=== PATIENT | male | born 1965 | race Caucasian/White ===

== ENCOUNTER 2017-05-21 07:00 | Inpatient (IN) ==
[~2017-05-21 07:00] MED LIST: ASPIRIN EC 325 MG TABLET PO SCH; CHLORHEXIDINE 0.12% ORAL RINSE 60 ML BOTTLE SWISH/SPIT SCH; DEXTROSE 50% 25 GM/50 ML VIAL IV PRN; GLUCAGON 1 MG VIAL IM PRN; LISINOPRIL/HCTZ 10-12.5 MG TABLET PO SCH; ROSUVASTATIN 10 MG TABLET PO SCH; SODIUM CHLORIDE 0.9% 1,000 ML IV SCH; ZOLPIDEM 5 MG TABLET PO PRN; oxyCODONE/ACETAMINOPHEN 5-325 MG TABLET PO PRN
[2017-05-21 14:19] LABS: Basophils % 0.3 % (0.0-0.8); Eosinophils # 0.1 10*3/uL (0.0-0.87); Eosinophils % 1.6 % (0.00-10.9); Hematocrit 44.1 VOL% (42.0-52.0); Hemoglobin 15.6 GM/DL (14.0-18.0); Immature Granulocytes % 0.3 %; Immature Granulocytes Absolute 0.02 #; Lymphocytes # 1.4 10*3/uL (1.4-4.0); Lymphocytes % 22.9 % (21.2-54.2); Mean Corpuscular HGB Conc 35.4 GM/DL (32-36); Mean Corpuscular Hemoglobin 31 PG (27-34); Mean Corpuscular Volume 88.4 FL (87-102); Mean Platelet Volume 10.2 FL (9.6-12.0); Monocytes # 0.5 10*3/uL (0.11-0.8); Monocytes % 8.4 % (1.7-12.7); Neutrophils # 4.1 10*3/uL (1.4-7.4); Neutrophils % 66.5 % (38.7-73.9); Platelet Count 193 T/CUMM (130-400); Red Blood Count 4.99 MC/CUMM (3.8-5.5); White Blood Count 6.2 T/CUMM (4-12)
[2017-05-21 14:47] LABS: Albumin 4.4 G/DL (3.4-5.0); Bilirubin,Total 0.4 MG/DL (0.2-1.0); Calcium 9.3 MG/DL (8.5-10.1); Osmolality,Calculated 279.4 MOS/KG (273-304); Potassium 3.7 MMOL/L (3.5-5.1); Total Protein 7.5 G/DL (6.4-8.3)
[2017-05-21] MEDS ORDERED: CHLORHEXIDINE 4% SOLN 118 ML BOTTLE TOP SCH (15:00)
[2017-05-21] MEDS ORDERED: SODIUM CHLORIDE 0.9% 1,000 ML IV SCH (15:00)
[2017-05-21] MEDS ORDERED: DEXTROSE 50% 25 GM/50 ML VIAL IV PRN (15:00)
[2017-05-21] MEDS ORDERED: GLUCAGON 1 MG VIAL IM PRN (15:00)
[2017-05-21] MEDS ORDERED: oxyCODONE/ACETAMINOPHEN 5-325 MG TABLET PO PRN (15:00)
[2017-05-21] MEDS ORDERED: ZOLPIDEM 5 MG TABLET PO PRN (15:00)
[2017-05-21] MEDS: CHLORHEXIDINE 4% SOLN 118 ML BOTTLE TOP SCH ×2 (15:00→22:02)
[2017-05-21] MEDS ORDERED: ROSUVASTATIN 10 MG TABLET PO SCH (21:00)
[2017-05-21] MEDS: CHLORHEXIDINE 0.12% ORAL RINSE 60 ML BOTTLE SWISH/SPIT SCH (22:03)
[2017-05-22] MEDS ORDERED: FAMOTIDINE 20 MG TABLET PO ONE (05:00)
[2017-05-22] MEDS ORDERED: LORazepam 1 MG TABLET PO ONE (05:00)
[2017-05-22] MEDS ORDERED: VANCOMYCIN 1,000 MG VIAL ONE ×2 (05:22→08:22)
[2017-05-22] MEDS ORDERED: PAPAVERINE 60 MG/2 ML VIAL ONE (05:22)
[2017-05-22] MEDS ORDERED: CEFUROXIME INJ 1,500 MG in SODIUM CHLORIDE 0.9% 50 ML IV ONE (06:30)
[2017-05-22] MEDS ORDERED: CALCIUM CHLORIDE 1,000 MG/10 ML SYRINGE IV ONE (07:28)
[2017-05-22] MEDS ORDERED: NITROPRUSSIDE 50 MG/2 ML VIAL ONE (07:28)
[2017-05-22] MEDS ORDERED: PHENYLEPHRINE DRIP 40 MG/250 ML PREMIX IV ONE (07:28)
[2017-05-22] MEDS ORDERED: POTASSIUM CHLORIDE RIDER 100 ML IV ONE (07:29)
[2017-05-22] MEDS ORDERED: ALBUMIN 5% 12.5 GM/250 ML VIAL IV ONE (07:29)
[2017-05-22 07:41] LABS: ABG Base Excess 1.1 MMOL/L (-2.5-2.5); ABG HCO3 25.4 MMOL/L (20-26); ABG PCO2 34.3 MM HG (35-48); Glucose Heart Surgery 124 MG/DL (74-106); Hemoglobin Heart Surgery 13.7 G/DL (14.0-18.0); Ionized Calcium Arterial 1.14 MMOL/L (1.21-1.46); PCO2 Patient Temp Arterial 34.3 MMHG; Patient Temperature 37 CELCIUS; Sodium Heart/CVR 138 MMOL/L (135-145)
[2017-05-22 07:45] LABS: Apearance,Urine CLEAR (Clear); Bilirubin,Urine Negative (Negative); Blood, Urine Negative (Negative); Glucose,Urine (UA) Negative (Negative); Ketones,Urine Negative (Negative); Nitrite,Urine Negative (Negative); Protein,Urine Negative; RBC,Urine 1 /HPF (0-4); Urine Color Yellow (Yellow); Urine Specific Gravity 1.014 (1.001-1.035); Urine Urobilinogen < 2.0 EU/DL (0.2-1.0)
[2017-05-22 07:46] LABS: Mucus,Urine Occasional /LPF (Occasional)
[2017-05-22] MEDS: CHLORHEXIDINE 4% SOLN 118 ML BOTTLE TOP SCH (08:58)
[2017-05-22] MEDS: CHLORHEXIDINE 0.12% ORAL RINSE 60 ML BOTTLE SWISH/SPIT SCH (08:58)
[2017-05-22] MEDS ORDERED: ASPIRIN EC 325 MG TABLET PO SCH (09:00)
[2017-05-22] MEDS ORDERED: LISINOPRIL/HCTZ 10-12.5 MG TABLET PO SCH (09:00)
[2017-05-22 09:30] LABS: Hemoglobin Heart Surgery 8.7 G/DL (14.0-18.0); PCO2 Patient Temp Venous 38.4 MM HG; PH Patient Temp Venous 7.424; PO2 Patient Temp Venous 39.4 MM HG; Potassium Heart/CVR 5.9 MMOL/L (3.5-5.1); VBG HCO3 25.1 MEQ/L (24-28); VBG Oxygen Saturation 82.3 %; VBG PCO2 44.4 MMHG (41-51); VBG PH 7.381; VBG PO2 48.4 MMHG (17-40)
[2017-05-22 10:03] LABS: Hematocrit Heart Surgery 30.6 PERCENT (42-52); Hemoglobin Heart Surgery 9.9 G/DL (14.0-18.0); PCO2 Patient Temp Venous 33.6 MM HG; PH Patient Temp Venous 7.465; PO2 Patient Temp Venous 41.6 MM HG; Potassium Heart/CVR 5.3 MMOL/L (3.5-5.1); VBG Base Excess 0.9 MEQ/L (0-4); VBG Oxygen Saturation 86.1 %; VBG PCO2 38.9 MMHG (41-51); VBG PH 7.421; VBG PO2 51.1 MMHG (17-40)
[2017-05-22] MEDS ORDERED: methylPREDNISolone SOD SUC 1,000 MG/8 ML VIAL ONE (10:48)
[2017-05-22] MEDS ORDERED: HEPARIN 10,000 UNIT/10 ML VIAL ONE (10:48)
[2017-05-22] MEDS ORDERED: PROTAMINE SULFATE 250 MG/25 ML VIAL IV ONE (10:48)
[2017-05-22] MEDS ORDERED: ALBUMIN 25% 25 GM/100 ML VIAL IV ONE (10:48)
[2017-05-22] MEDS ORDERED: SODIUM BICARBONATE 50 MEQ/50 ML SYRINGE IV ONE (10:48)
[2017-05-22] MEDS ORDERED: MAGNESIUM SULFATE 1 GM/2 ML VIAL ONE (10:48)
[2017-05-22] MEDS ORDERED: DEXTROSE 5% KCL 20 MEQ 20 MEQ/1,000 ML BAG IV ONE (10:48)
[2017-05-22] MEDS ORDERED: MANNITOL 12.5 GM/50 ML VIAL IV ONE (10:49)
[2017-05-22] MEDS ORDERED: FUROSEMIDE 20 MG/2 ML VIAL ONE (10:49)
[2017-05-22] MEDS ORDERED: PROTAMINE SULFATE 50 MG/5 ML VIAL IV ONE ×3 (10:49→12:02)
[2017-05-22 11:02] LABS: ABG HCO3 23.6 MMOL/L (20-26); ABG PCO2 35.3 MM HG (35-48); ABG PH 7.421 (7.35-7.45); ABG TCO2 20.6 MMOL/L (23-27); Glucose Heart Surgery 223 MG/DL (74-106); Hematocrit Heart Surgery 32.9 PERCENT (42-52); Hemoglobin Heart Surgery 10.7 G/DL (14.0-18.0); Ionized Calcium Arterial 1.58 MMOL/L (1.21-1.46); PCO2 Patient Temp Arterial 35.3 MMHG; PH Patient Temp Arterial 7.421; Patient Temperature 37 CELCIUS; Potassium Heart/CVR 3.8 MMOL/L (3.5-5.1); Sodium Heart/CVR 135 MMOL/L (135-145)
[2017-05-22] MEDS ORDERED: CALCIUM CHLORIDE 1,000 MG/10 ML VIAL IV ONE (11:56)
[2017-05-22] MEDS ORDERED: SUFentanil 250 MCG/5 ML AMP ONE (11:57)
[2017-05-22] MEDS ORDERED: MIDAZOLAM 10 MG/2 ML VIAL ONE ×2 (11:57)
[2017-05-22] MEDS ORDERED: ONDANSETRON 4 MG/2 ML VIAL ONE (11:58)
[2017-05-22] MEDS ORDERED: MINERAL OIL/PETROLATUM OPH OINT 3.5 GM TUBE ONE (11:58)
[2017-05-22] MEDS ORDERED: TRANEXAMIC ACID 1,000 MG/10 ML VIAL IV ONE (11:58)
[2017-05-22] MEDS ORDERED: PHENYLEPHRINE 50 MG/5 ML VIAL ONE (11:58)
[2017-05-22] MEDS ORDERED: ETOMIDATE 40 MG/20 ML VIAL IV ONE (11:58)
[2017-05-22] MEDS ORDERED: DEXAMETHASONE 10 MG/1 ML VIAL ONE (11:58)
[2017-05-22] MEDS ORDERED: ePHEDrine 50 MG/ML AMP ONE (11:58)
[2017-05-22] MEDS ORDERED: SODIUM CHLORIDE 0.9% 1,000 ML IV ONE (11:59)
[2017-05-22] MEDS ORDERED: GLYCOPYRROLATE 0.4 MG/2 ML VIAL ONE (11:59)
[2017-05-22] MEDS ORDERED: LACTATED RINGERS 1,000 ML IV ONE (11:59)
[2017-05-22] MEDS ORDERED: ROCURONIUM 100 MG/10 ML VIAL IV ONE (11:59)
[2017-05-22] MEDS ORDERED: SODIUM CHLORIDE 0.9% 100 ML IV ONE (12:00)
[2017-05-22] MEDS ORDERED: NITROGLYCERIN DRIP 50 MG/250 ML BOTTLE IV ONE (12:00)
[2017-05-22] MEDS ORDERED: SODIUM CHLORIDE 0.9% 500 ML IV ONE (12:00)
[2017-05-22] MEDS ORDERED: HEPARIN/NACL 0.9% 2 UNITS/ML 500 ML IV ONE (12:00)
[2017-05-22] MEDS ORDERED: SEVOFLURANE 1 UNIT/15 MINUTE INH ONE (12:03)
[2017-05-22] MEDS ORDERED: INSULIN REGULAR DRIP 100 ML IV SCH (12:06)
[2017-05-22] MEDS ORDERED: ACETAMINOPHEN 650 MG SUPP RECTAL PRN (12:06)
[2017-05-22] MEDS ORDERED: MIDAZOLAM 10 MG/2 ML VIAL IV PRN (12:06)
[2017-05-22] MEDS ORDERED: SODIUM CHLORIDE 0.45% 1,000 ML IV SCH ×2 (12:06)
[2017-05-22] MEDS ORDERED: MORPHINE 10 MG/1 ML VIAL IV PRN (12:06)
[2017-05-22] MEDS ORDERED: MAGNESIUM SULF RIDER 2 GM in PREMIX 1 EACH IV PRN (12:06)
[2017-05-22] MEDS ORDERED: DEXTROSE 50% 25 GM/50 ML VIAL IV PRN ×2 (12:06)
[2017-05-22] MEDS ORDERED: MAGNESIUM SULF RIDER 4 GM in PREMIX 1 EACH IV PRN (12:06)
[2017-05-22] MEDS ORDERED: INSULIN REGULAR 100 UNIT/ML IV ONE (12:06)
[2017-05-22] MEDS ORDERED: ONDANSETRON 4 MG/2 ML VIAL IV PRN (12:06)
[2017-05-22] MEDS ORDERED: NITROPRUSSIDE 100 MG in DEXTROSE 5% 250 ML IV PRN (12:06)
[2017-05-22] MEDS ORDERED: MIDAZOLAM 2 MG/2 ML VIAL IV PRN (12:06)
[2017-05-22] MEDS ORDERED: POTASSIUM CHLORIDE RIDER 10 MEQ in PREMIX 1 EACH IV PRN (12:06)
[2017-05-22] MEDS ORDERED: INSULIN REGULAR 100 UNIT/ML IV PRN (12:06)
[2017-05-22] MEDS ORDERED: PHENYLEPHRINE DRIP 40 MG/250 ML PREMIX IV PRN (12:06)
[2017-05-22] MEDS ORDERED: VECURONIUM 10 MG VIAL IV PRN ×2 (12:06)
[2017-05-22] MEDS ORDERED: CALCIUM CHLORIDE 1,000 MG/10 ML SYRINGE IV PRN (12:06)
[2017-05-22] MEDS ORDERED: LACTATED RINGERS 250 ML IV PRN (12:06)
[2017-05-22 12:11] LABS: ABG Base Excess -0.5 MMOL/L (-2.5-2.5); ABG Oxygen Saturation 98.6 % (95-100); ABG PCO2 39.5 MM HG (35-48); ABG PH 7.395 (7.35-7.45); ABG TCO2 21.4 MMOL/L (23-27); Glucose Heart Surgery 184 MG/DL (74-106); Hematocrit Heart Surgery 36.8 PERCENT (42-52); Potassium Heart/CVR 4.1 MMOL/L (3.5-5.1)
[2017-05-22 12:12] LABS: Basophils % 0.1 % (0.0-0.8); Eosinophils # 0.1 10*3/uL (0.0-0.87); Eosinophils % 0.3 % (0.00-10.9); Hematocrit 34.1 VOL% (42.0-52.0); Immature Granulocytes % 0.8 %; Immature Granulocytes Absolute 0.12 #; Lymphocytes # 0.8 10*3/uL (1.4-4.0); Lymphocytes % 5.5 % (21.2-54.2); Mean Corpuscular HGB Conc 34.6 GM/DL (32-36); Mean Corpuscular Hemoglobin 31 PG (27-34); Mean Platelet Volume 9.9 FL (9.6-12.0); Monocytes # 0.6 10*3/uL (0.11-0.8); Monocytes % 3.7 % (1.7-12.7); Neutrophils # 13.4 10*3/uL (1.4-7.4); Neutrophils % 89.6 % (38.7-73.9); Red Cell Distribution Width 12.1 % (9.3-17.3)
[2017-05-22] MEDS: ALBUMIN 5% 12.5 GM in PREMIX 1 EACH IV PRN ×4 (12:15→14:10)
[2017-05-22 12:16] LABS: Hemoglobin 11.8 GM/DL (14.0-18.0); Platelet Count 172 T/CUMM (130-400); Red Blood Count 3.79 MC/CUMM (3.8-5.5)
[2017-05-22 12:19] LABS: INR 1.1; PT Patient Result 11.4 SECS; Partial Thromboplastin Time 26.1 SECS (0-40)
[2017-05-22] MEDS: LACTATED RINGERS 1,000 ML IV PRN ×4 (12:30→17:50)
[2017-05-22 12:31] LABS: Albumin 3.5 G/DL (3.4-5.0); Bilirubin,Total 0.8 MG/DL (0.2-1.0); Calcium 10.2 MG/DL (8.5-10.1); Magnesium 2.6 MG/DL (1.8-2.4); Osmolality,Calculated 286.1 MOS/KG (273-304); Potassium 4.2 MMOL/L (3.5-5.1); Total Protein 5.8 G/DL (6.4-8.3)
[2017-05-22 12:49] LABS: CKMB % 4.6 %
[2017-05-22 12:52] LABS: Troponin I Only 2.1 NG/ML (0.00-0.045)
[2017-05-22] MEDS: POTASSIUM CHLORIDE RIDER 20 MEQ in PREMIX 1 EACH IV PRN ×5 (12:54→23:54)
[2017-05-22 13:20] LABS: Lymphocytes 12 % (20-55); Segmented Neutrophils 86 % (50-85); Total Cells Counted 100
[2017-05-22 13:21] LABS: Hypochromasia 1+; Platelet Estimate Adequate
[2017-05-22 13:30] LABS: ABG HCO3 24.4 MMOL/L (20-26); ABG Oxygen Saturation 95.2 % (95-100); ABG PCO2 38.7 MM HG (35-48); ABG PH 7.417 (7.35-7.45); ABG PO2 83.4 MM HG (80-95); ABG TCO2 25.6 MMOL/L (23-27); Glucose Heart Surgery 148 MG/DL (74-106); Hemoglobin Heart Surgery 10.6 G/DL (14.0-18.0); Potassium Heart/CVR 4.1 MMOL/L (3.5-5.1)
[2017-05-22] MEDS: KETOROLAC 30 MG/1 ML VIAL IV SCH ×2 (13:51→18:28)
[2017-05-22 14:11] LABS: Hematocrit Heart Surgery 29.8 PERCENT (42-52); Hemoglobin Heart Surgery 9.6 G/DL (14.0-18.0); PCO2 Patient Temp Venous 46.2 MM HG; PH Patient Temp Venous 7.382; PO2 Patient Temp Venous 37.8 MM HG; Potassium Heart/CVR 4.5 MMOL/L (3.5-5.1); VBG Base Excess 1.9 MEQ/L (0-4); VBG HCO3 25.6 MEQ/L (24-28); VBG Oxygen Saturation 66.3 %; VBG PCO2 46.2 MMHG (41-51); VBG PH 7.382; VBG PO2 37.8 MMHG (17-40)
[2017-05-22 16:00] LABS: ABG Base Excess 0.8 MMOL/L (-2.5-2.5); ABG Oxygen Saturation 97.1 % (95-100); ABG PCO2 37.9 MM HG (35-48); ABG PH 7.437 (7.35-7.45); ABG PO2 106.5 MM HG (80-95); ABG TCO2 26.2 MMOL/L (23-27); Glucose Heart Surgery 138 MG/DL (74-106); Hemoglobin Heart Surgery 9.1 G/DL (14.0-18.0); Potassium Heart/CVR 4.1 MMOL/L (3.5-5.1)
[2017-05-22] MEDS: MORPHINE 2 MG/1 ML SYRINGE IV PRN (16:58)
[2017-05-22 17:21] LABS: ABG Base Excess 0.1 MMOL/L (-2.5-2.5); ABG Oxygen Saturation 96.8 % (95-100); ABG PCO2 41.8 MM HG (35-48); ABG PH 7.395 (7.35-7.45); ABG PO2 98.8 MM HG (80-95); ABG TCO2 26.3 MMOL/L (23-27); Glucose Heart Surgery 139 MG/DL (74-106); Hemoglobin Heart Surgery 10.7 G/DL (14.0-18.0); Potassium Heart/CVR 4.5 MMOL/L (3.5-5.1)
[2017-05-22] MEDS ORDERED: CEFUROXIME INJ 1,500 MG in SYRINGE 1 EACH IV SCH (20:00)
[2017-05-22 20:58] LABS: ABG Base Excess -0.1 MMOL/L (-2.5-2.5); ABG HCO3 24.5 MMOL/L (20-26); ABG Oxygen Saturation 97.5 % (95-100); ABG PCO2 39.2 MM HG (35-48); ABG PH 7.413 (7.35-7.45); ABG PO2 114.3 MM HG (80-95); ABG TCO2 25.7 MMOL/L (23-27); Glucose Heart Surgery 168 MG/DL (74-106); Potassium Heart/CVR 3.8 MMOL/L (3.5-5.1)
[2017-05-22] MEDS ORDERED: CHLORHEXIDINE 0.12% ORAL RINSE 60 ML BOTTLE SWISH/SPIT SCH (21:00)
[2017-05-22 21:33] LABS: Troponin I Only 3.71 NG/ML (0.00-0.045)
[2017-05-22] MEDS ORDERED: FUROSEMIDE 40 MG/4 ML VIAL IV ONE (22:13)
[2017-05-22 23:09] LABS: ABG Base Excess 1.6 MMOL/L (-2.5-2.5); ABG HCO3 23.6 MMOL/L (20-26); ABG Oxygen Saturation 97.3 % (95-100); ABG PCO2 28.8 MM HG (35-48); ABG PH 7.532 (7.35-7.45); ABG PO2 95.7 MM HG (80-95); ABG TCO2 24.5 MMOL/L (23-27); Glucose Heart Surgery 145 MG/DL (74-106); Potassium Heart/CVR 3.3 MMOL/L (3.5-5.1)
[2017-05-23 00:12] LABS: ABG Base Excess 2.1 MMOL/L (-2.5-2.5); ABG HCO3 25.7 MMOL/L (20-26); ABG Oxygen Saturation 97.5 % (95-100); ABG PCO2 36.2 MM HG (35-48); ABG PH 7.469 (7.35-7.45); ABG PO2 108.3 MM HG (80-95); ABG TCO2 26.8 MMOL/L (23-27); Glucose Heart Surgery 132 MG/DL (74-106); Hemoglobin Heart Surgery 10.7 G/DL (14.0-18.0); Potassium Heart/CVR 3.8 MMOL/L (3.5-5.1)
[2017-05-23] MEDS: POTASSIUM CHLORIDE RIDER 20 MEQ in PREMIX 1 EACH IV PRN ×3 (00:28→06:13)
[2017-05-23] MEDS: KETOROLAC 30 MG/1 ML VIAL IV SCH ×4 (00:59→18:33)
[2017-05-23 01:05] LABS: ABG Base Excess 1.9 MMOL/L (-2.5-2.5); ABG HCO3 26.3 MMOL/L (20-26); ABG Oxygen Saturation 97.5 % (95-100); ABG PCO2 40.6 MM HG (35-48); ABG PO2 106.8 MM HG (80-95); ABG TCO2 27.6 MMOL/L (23-27); Glucose Heart Surgery 122 MG/DL (74-106); Hemoglobin Heart Surgery 10.5 G/DL (14.0-18.0); Potassium Heart/CVR 4.1 MMOL/L (3.5-5.1)
[2017-05-23] MEDS: LACTATED RINGERS 1,000 ML IV PRN (01:20)
[2017-05-23] MEDS: MORPHINE 2 MG/1 ML SYRINGE IV PRN ×2 (01:20→04:28)
[2017-05-23 04:09] LABS: ABG Base Excess 3.1 MMOL/L (-2.5-2.5); ABG HCO3 27.2 MMOL/L (20-26); ABG Oxygen Saturation 99.1 % (95-100); ABG PCO2 43.4 MM HG (35-48); ABG PH 7.417 (7.35-7.45); ABG TCO2 25.5 MMOL/L (23-27); Glucose Heart Surgery 111 MG/DL (74-106); Hematocrit Heart Surgery 30.2 PERCENT (42-52); Hemoglobin Heart Surgery 9.8 G/DL (14.0-18.0); Potassium Heart/CVR 3.9 MMOL/L (3.5-5.1)
[2017-05-23 04:22] LABS: Basophils % 0.1 % (0.0-0.8); Hematocrit 28.1 VOL% (42.0-52.0); Hemoglobin 9.6 GM/DL (14.0-18.0); Immature Granulocytes % 0.5 %; Immature Granulocytes Absolute 0.06 #; Lymphocytes # 0.3 10*3/uL (1.4-4.0); Lymphocytes % 2.6 % (21.2-54.2); Mean Corpuscular HGB Conc 34.2 GM/DL (32-36); Mean Corpuscular Hemoglobin 30 PG (27-34); Mean Corpuscular Volume 88.9 FL (87-102); Monocytes # 0.6 10*3/uL (0.11-0.8); Neutrophils # 10.8 10*3/uL (1.4-7.4); Neutrophils % 91.8 % (38.7-73.9); Platelet Count 128 T/CUMM (130-400); Red Blood Count 3.16 MC/CUMM (3.8-5.5); Red Cell Distribution Width 13.1 % (9.3-17.3); White Blood Count 11.7 T/CUMM (4-12)
[2017-05-23 04:49] LABS: Albumin 3.8 G/DL (3.4-5.0); Bilirubin,Direct 0.14 MG/DL (0.0-0.20); Bilirubin,Total 0.4 MG/DL (0.2-1.0); Calcium 8.8 MG/DL (8.5-10.1); Magnesium 1.9 MG/DL (1.8-2.4)
[2017-05-23 04:55] LABS: Band Neutrophils 5 % (0-10); Giant Platelets Few; Hypochromasia 1+; Lymphocytes 1 % (20-55); Platelet Estimate Normal; Segmented Neutrophils 89 % (50-85); Total Cells Counted 100
[2017-05-23 05:09] LABS: CKMB % 6.8 %
[2017-05-23 05:13] LABS: Troponin I Only 9.91 NG/ML (0.00-0.045)
[2017-05-23] MEDS ORDERED: DEXTROSE 50% 25 GM/50 ML VIAL IV PRN ×2 (07:55)
[2017-05-23] MEDS ORDERED: POTASSIUM CHLORIDE 20 MEQ TABLET PO PRN (07:55)
[2017-05-23] MEDS ORDERED: ONDANSETRON 4 MG/2 ML VIAL IV PRN (07:55)
[2017-05-23] MEDS ORDERED: MAGNESIUM SULF RIDER 2 GM in PREMIX 1 EACH IV PRN (07:55)
[2017-05-23] MEDS ORDERED: ZALEPLON 5 MG CAPSULE PO PRN (07:55)
[2017-05-23] MEDS ORDERED: ACETAMINOPHEN 325 MG TABLET PO PRN (07:55)
[2017-05-23] MEDS ORDERED: KETOROLAC 30 MG/1 ML VIAL IV PRN ×2 (07:55→11:11)
[2017-05-23] MEDS ORDERED: MAGNESIUM SULF RIDER 4 GM in PREMIX 1 EACH IV PRN (07:55)
[2017-05-23] MEDS ORDERED: ALUMINUM/MAGNES/SIMETH MAX STR 30 ML UDCUP PO PRN (07:55)
[2017-05-23] MEDS ORDERED: GLUCAGON 1 MG VIAL IM PRN ×2 (07:55)
[2017-05-23] MEDS ORDERED: MORPHINE 2 MG/1 ML SYRINGE IV PRN (07:55)
[2017-05-23] MEDS ORDERED: PROMETHAZINE INJ 12.5 MG in SODIUM CHLORIDE 0.9% 50 ML IV ONE (07:58)
[2017-05-23] MEDS ORDERED: METOCLOPRAMIDE 10 MG/2 ML VIAL IV ONE (07:59)
[2017-05-23] MEDS: ASPIRIN EC 325 MG TABLET PO SCH (09:11)
[2017-05-23] MEDS: DOCUSATE SODIUM 100 MG CAPSULE PO SCH (09:11)
[2017-05-23] MEDS: CHLORHEXIDINE 0.12% ORAL RINSE 60 ML BOTTLE SWISH/SPIT SCH ×2 (09:12→22:00)
[2017-05-23] MEDS: FERROUS SULFATE 325 MG TABLET PO SCH (09:12)
[2017-05-23] MEDS: METOPROLOL SUCCINATE XL 25 MG TABLET PO SCH (09:12)
[2017-05-23] MEDS: LISINOPRIL/HCTZ 10-12.5 MG TABLET PO SCH (09:12)
[2017-05-23] MEDS: oxyCODONE/ACETAMINOPHEN 5-325 MG TABLET PO PRN ×2 (09:13→20:40)
[2017-05-23] MEDS: PANTOPRAZOLE 40 MG TABLET PO SCH (09:13)
[2017-05-23] MEDS: SODIUM CHLOR 0.45% KCL 20 MEQ 20 MEQ/1,000 ML BAG IV SCH (10:03)
[2017-05-23] MEDS: COENZYME Q10 100 MG CAPSULE PO SCH (10:06)
[2017-05-23] MEDS: PSYLLIUM POWDER 3.7 GM/PACK PO SCH (10:06)
[2017-05-23] MEDS: CEFUROXIME INJ 1,500 MG in SYRINGE 1 EACH IV SCH (11:20)
[2017-05-23] MEDS: ROSUVASTATIN 10 MG TABLET PO SCH (21:59)
[2017-05-24] MEDS: CEFUROXIME INJ 1,500 MG in SYRINGE 1 EACH IV SCH (00:56)
[2017-05-24] MEDS ORDERED: FUROSEMIDE 40 MG/4 ML VIAL IV ONE (06:00)
[2017-05-24 07:20] LABS: Basophils % 0.1 % (0.0-0.8); Hematocrit 31.8 VOL% (42.0-52.0); Hemoglobin 10.8 GM/DL (14.0-18.0); Immature Granulocytes Absolute 0.19 #; Lymphocytes # 0.7 10*3/uL (1.4-4.0); Lymphocytes % 3.8 % (21.2-54.2); Mean Corpuscular Hemoglobin 31 PG (27-34); Mean Corpuscular Volume 91.1 FL (87-102); Mean Platelet Volume 11.2 FL (9.6-12.0); Monocytes # 1.5 10*3/uL (0.11-0.8); Monocytes % 7.6 % (1.7-12.7); Neutrophils # 16.9 10*3/uL (1.4-7.4); Neutrophils % 87.5 % (38.7-73.9); Platelet Count 143 T/CUMM (130-400); Red Blood Count 3.49 MC/CUMM (3.8-5.5); Red Cell Distribution Width 13.2 % (9.3-17.3); White Blood Count 19.3 T/CUMM (4-12)
[2017-05-24 07:41] LABS: Band Neutrophils 3 % (0-10); Hypochromasia Slight; Lymphocytes 4 % (20-55); Segmented Neutrophils 88 % (50-85); Total Cells Counted 100
[2017-05-24 07:42] LABS: Microcytosis Slight; Platelet Estimate Adequate
[2017-05-24 07:49] LABS: Albumin 3.7 G/DL (3.4-5.0); Bilirubin,Direct 0.1 MG/DL (0.0-0.20); Bilirubin,Indirect 0.4 MG/DL (0.0-1.0); Bilirubin,Total 0.5 MG/DL (0.2-1.0); CKMB % 3.8 %; Calcium 8.6 MG/DL (8.5-10.1); Magnesium 2.4 MG/DL (1.8-2.4); Osmolality,Calculated 287.1 MOS/KG (273-304); Potassium 4.2 MMOL/L (3.5-5.1); Total Protein 6.1 G/DL (6.4-8.3)
[2017-05-24 07:58] LABS: Troponin I Only 17.3 NG/ML (0.00-0.045)
[2017-05-24] MEDS: COENZYME Q10 100 MG CAPSULE PO SCH (10:51)
[2017-05-24] MEDS: DOCUSATE SODIUM 100 MG CAPSULE PO SCH (10:51)
[2017-05-24] MEDS: FERROUS SULFATE 325 MG TABLET PO SCH (10:51)
[2017-05-24] MEDS: ASPIRIN EC 325 MG TABLET PO SCH (10:51)
[2017-05-24] MEDS: CHLORHEXIDINE 0.12% ORAL RINSE 60 ML BOTTLE SWISH/SPIT SCH ×2 (10:52→21:03)
[2017-05-24] MEDS: LISINOPRIL/HCTZ 10-12.5 MG TABLET PO SCH (10:52)
[2017-05-24] MEDS: PSYLLIUM POWDER 3.7 GM/PACK PO SCH (10:52)
[2017-05-24] MEDS: HYDROmorphone 2 MG/1 ML VIAL IV PRN ×2 (10:53→20:01)
[2017-05-24] MEDS: METOPROLOL SUCCINATE XL 25 MG TABLET PO SCH (10:53)
[2017-05-24] MEDS: PANTOPRAZOLE 40 MG TABLET PO SCH (10:53)
[2017-05-24] MEDS: SODIUM CHLOR 0.45% KCL 20 MEQ 20 MEQ/1,000 ML BAG IV SCH (14:37)
[2017-05-24] MEDS: ROSUVASTATIN 10 MG TABLET PO SCH (21:03)
[2017-05-25] MEDS: HYDROmorphone 2 MG/1 ML VIAL IV PRN ×3 (04:19→23:29)
[2017-05-25 06:36] LABS: Basophils % 0.1 % (0.0-0.8); Eosinophils # 0.1 10*3/uL (0.0-0.87); Eosinophils % 0.4 % (0.00-10.9); Hematocrit 32.7 VOL% (42.0-52.0); Hemoglobin 11.2 GM/DL (14.0-18.0); Immature Granulocytes % 0.7 %; Lymphocytes # 1.5 10*3/uL (1.4-4.0); Lymphocytes % 10.9 % (21.2-54.2); Mean Corpuscular HGB Conc 34.3 GM/DL (32-36); Mean Corpuscular Hemoglobin 31 PG (27-34); Mean Corpuscular Volume 90.1 FL (87-102); Mean Platelet Volume 11.6 FL (9.6-12.0); Monocytes # 1.5 10*3/uL (0.11-0.8); Monocytes % 10.9 % (1.7-12.7); Neutrophils # 10.8 10*3/uL (1.4-7.4); Platelet Count 149 T/CUMM (130-400); Red Blood Count 3.63 MC/CUMM (3.8-5.5); Red Cell Distribution Width 13.1 % (9.3-17.3); White Blood Count 14.1 T/CUMM (4-12)
[2017-05-25 07:20] LABS: Alanine Aminotransferase 30 U/L (16-61); Albumin 3.7 G/DL (3.4-5.0); Alkaline Phosphatase 52 U/L (45-117); Aspartate Amino Transferase 57 U/L (0-37); Bilirubin,Indirect 0.5 MG/DL (0.0-1.0); Blood Urea Nitrogen 19 MG/DL (7-18); Calcium 8.4 MG/DL (8.5-10.1); Glucose 121 MG/DL (74-106); Magnesium 2.3 MG/DL (1.8-2.4); Osmolality,Calculated 279.5 MOS/KG (273-304); Potassium 3.5 MMOL/L (3.5-5.1); Sodium 139 MMOL/L (136-145); Total Protein 6.2 G/DL (6.4-8.3)
[2017-05-25] MEDS: ASPIRIN EC 325 MG TABLET PO SCH (09:13)
[2017-05-25] MEDS: FERROUS SULFATE 325 MG TABLET PO SCH (09:13)
[2017-05-25] MEDS: PSYLLIUM POWDER 3.7 GM/PACK PO SCH (09:13)
[2017-05-25] MEDS: CHLORHEXIDINE 0.12% ORAL RINSE 60 ML BOTTLE SWISH/SPIT SCH ×2 (09:13→23:28)
[2017-05-25] MEDS: MAGNESIUM HYDROXIDE SUSP 30 ML UDCUP PO PRN ×2 (09:13→18:00)
[2017-05-25] MEDS: LISINOPRIL/HCTZ 10-12.5 MG TABLET PO SCH (09:13)
[2017-05-25] MEDS: PANTOPRAZOLE 40 MG TABLET PO SCH (09:13)
[2017-05-25] MEDS: METOPROLOL SUCCINATE XL 50 MG TABLET PO SCH (09:14)
[2017-05-25] MEDS: COENZYME Q10 100 MG CAPSULE PO SCH (09:14)
[2017-05-25] MEDS: DOCUSATE SODIUM 100 MG CAPSULE PO SCH (09:14)
[2017-05-25] MEDS: ROSUVASTATIN 10 MG TABLET PO SCH (23:28)
[2017-05-26] MEDS: DOCUSATE SODIUM 100 MG CAPSULE PO SCH (09:08)
[2017-05-26] MEDS: METOPROLOL SUCCINATE XL 50 MG TABLET PO SCH (09:08)
[2017-05-26] MEDS: PANTOPRAZOLE 40 MG TABLET PO SCH (09:08)
[2017-05-26] MEDS: ASPIRIN EC 325 MG TABLET PO SCH (09:09)
[2017-05-26] MEDS: FERROUS SULFATE 325 MG TABLET PO SCH (09:09)
[2017-05-26] MEDS: LISINOPRIL/HCTZ 10-12.5 MG TABLET PO SCH (09:09)
[2017-05-26] MEDS: PSYLLIUM POWDER 3.7 GM/PACK PO SCH (09:10)
[2017-05-26] MEDS: CHLORHEXIDINE 0.12% ORAL RINSE 60 ML BOTTLE SWISH/SPIT SCH (09:14)
[2017-05-26 12:15] VITALS: BP 133/74
[2017-05-26] MEDS: COENZYME Q10 100 MG CAPSULE PO SCH (12:21)
== END 2017-05-26 13:40 | disposition home health service (06) | DRG 236 ==
LOC: N.TELES 12:55 → N.CVR 05-22 11:29 → N.ICU 05-23 11:02 → N.TELES 05-23 13:52